=== PATIENT | male | born 1965 | race Caucasian/White ===

== ENCOUNTER → 2019-05-01 | Outpatient (CLI) | payer OTHER ==
[~2019-05-01] MED LIST: ACYCLOVIR 400400 MG PO; ATIVAN1 MG PO; OMEGA 3-6-9 CO1 EACH PO; VALIUM5 MG PO
== END ==
LOC: M.MRI 07:02
DX: M47.22 Other spondylosis with radiculopathy, cervical region (principal); S13.140A Subluxation of C3/C4 cervical vertebrae, initial encounter; M48.02 Spinal stenosis, cervical region; M50.11 Cervical disc disorder with radiculopathy, high cervical region; X58.XXXA Exposure to other specified factors, initial encounter; Y93.89 Activity, other specified; Y92.89 Other specified places as the place of occurrence of the external cause; Y99.8 Other external cause status

== ENCOUNTER → 2019-05-13 | Outpatient (CLI) | payer OTHER ==
[~2019-05-13] MED LIST changes: +DIPHENHYDRAMINE25 M3 PO; +GABAPENTIN100 MG PO; +LIPITOR 20 MG T20 M1 PO; +LOVAZA1000 MG PO; +MILK THISTLE175 M4 PO; +OMEPRAZOLE 20 M20 M1 PO; +TIZANIDINE HCL4 M1 PO; +VITAMIN B12-FO1 EAC1 PO; +VITAMIN D325 MC3 PO
== END ==
LOC: M.PC 05:44
DX: M47.22 Other spondylosis with radiculopathy, cervical region (principal); M50.122 Cervical disc disorder at C5-C6 level with radiculopathy; M48.02 Spinal stenosis, cervical region

== ENCOUNTER 2021-01-26 13:07 | Inpatient (IN) | payer OTHER ==
[~2021-01-26] VITALS: Ht 182.9 cm; Wt 73.0 kg
--- NOTE | ~2021-01-26 | CON ---
[address] [address] CONSULTATION Name: ZINA KRAMER Room: [address] IN M.R.#: [id number] Admission: 01/26/21 Attend Phys: John Phipps MD Discharge: Date of : 63 Report #: [id number] THIS REPORT FOR: cc: Ziggy Armenta MD, Dean L. MD Khosla, Parveen K. 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 He was admitted with couple of seizures. He does not remember anything about those seizures. He does not know when he had it and later on during the examination, it looks like this patient has pretty significant memory deficits. He said he used to drink heavily until about a week ago, he felt sick and tried to cut back. He will not specify what heavily means. He said he was with his fiancee and I do not have the number in the computer for the fiancee. Apparently, he had 2 episodes of seizure. He also says he was ataxic recently. How long that was going on is not clear. He came to Emergency Room and looks like they did a head CT as well as a C-spine CT and it showed some volume loss, but was otherwise unremarkable. REVIEW OF SYSTEMS: A 14-point review of systems is positive for what looks like heavy alcoholism. He had a couple of seizures, but further history is difficult to tell. Some of the medication listed is gabapentin, I am not sure why he is on that. He apparently has a history of rib fracture, but I do not know what the etiology is and I hope I can reach some family. I tried out 14-point review of systems, that is all I can get. PAST MEDICAL HISTORY: Positive for heavy alcoholism. FAMILY HISTORY: Unavailable. SOCIAL HISTORY: He drinks alcohol. PHYSICAL EXAMINATION: NEUROLOGIC: The patient's examination indicates he does not know what month it is. His speech is intact. He does not know what hospital he is in. Cranial nerve examination 2-12 was mostly unremarkable. He moves all 4 extremities. His reflexes are diminished. His position sense appeared to be present. CARDIAC: Unremarkable. RESPIRATORY: Unremarkable. VITAL SIGNS: His temperature is 98.6, blood pressure is 111/85, pulse is 96. LABORATORY DATA: His platelet count is 111. His potassium was only 2.9 when he came in. His liver functions are ____. [place] [address] CONSULTATION Name: ZINA KRAMER Room: [address]#: [id number] Admission: 01/26/21 Attend Phys: John Phipps MD Discharge: Date of : 63 Report #: [id number] IMPRESSION: Everything point towards alcohol withdrawal seizure or alcohol-related seizure. This patient probably is going to withdraw and is already withdrawing. I will get an EEG done, and if another seizure occurs, we will consider seizure medications. We will get an MRI done to complete the workup once he is stable, but presently, I do not want to send him to MRI and get the chance of him having a seizure there. I discussed with him about the alcohol and the fact that he had a seizure, so he cannot drive for 6 months because the state law says that the patient should not drive after the seizure for 6 months. He also needs to take all the seizure precautions, where he can hurt himself if he has a seizure. I will also discuss the patient with Dr. Dior. I spent about 50 minutes of time and majority was spent counseling, coordinating, reviewing his imaging studies and his records. Thank you very much for this referral. By: [id number] 1907Lakhwinder Gamez MD /nt
--- NOTE | ~2021-01-26 | EEG ---
[address] [address] EEG STUDY REPORT Name: ZINA KRAMER Room: [address] IN .R.#: [id number] Admission: 01/26/21 Attend Phys: John Phipps MD Discharge: Date of : 63 Report #: [id number] THIS REPORT FOR: cc: Ziggy Armenta MD, Dean L. MD Khosla,Lakhwinder Childs MD ~ DATE OF SERVICE: 01/28/2021 This patient is being evaluated for a seizure. EEG was done by placing the electrode by standard 10-20 system of electrode placement. Both referential and sequential montages were used for recording. Background activity in this patient's EEG goes up to about 9 Hz and 30 microvolt. It is intermixed with theta range slowing on both sides. Photic stimulation is unremarkable. Throughout the record, no active epileptiform activity was noticed. IMPRESSION: This patient's EEG is within normal limits. Thank you very much for this referral. By: [id number] [id number] Gamez MD /nt
[2021-01-26 13:29] LABS: ABSOLUTE LYMPHOCYTES 0.3 thou/uL (0.8-5.3); ABSOLUTE MONOCYTES 0.5 thou/uL (0.0-1.2); ABSOLUTE NEUTROPHILS 4.9 thou/uL (1.6-8.1); BASOPHILS 0.4 %; EOSINOPHILS 0.1 %; HEMATOCRIT 39.4 % (42.0-52.0); HEMOGLOBIN 13.6 gm/dL (14.0-18.0); LYMPHOCYTES 5.7 %; MCH 31.9 pg (26.0-34.0); MCHC 34.4 g/dL (28.0-37.0); MCV 92.7 fL (80.0-100.0); MONOCYTES 8.1 %; MPV 7.6 fl. (7.2-11.1); NUCLEATED RBCS 0 /100WBC; PLATELET COUNT* 111 thou/uL (150-400); POLYS 85.7 %; RBC 4.25 mil/uL (4.50-6.00); RDW-CV 16.3 % (10.5-14.5); WBC 5.8 thou/uL (4.0-11.0)
[2021-01-26 13:46] LABS: ALBUMIN 4.3 g/dL (3.4-5.0); CALCIUM 8.7 mg/dL (8.5-10.1); CREATININE 1.3 mg/dL (0.6-1.3); TOTAL BILIRUBIN 1.9 mg/dL (<0.1-1.0); TOTAL PROTEIN 7.7 g/dL (6.4-8.2)
[2021-01-26 13:47] LABS: POTASSIUM 2.8 mmol/L (3.5-5.1)
[2021-01-26 13:52] LABS: ALCOHOL < 10 mg/dL (<10)
[2021-01-26 13:55] LABS: ACETAMINOPHEN < 2 ug/mL (10-30); SALICYLATE < 2.8 mg/dL (2.8-20.0)
--- NOTE | 2021-01-26 15:00 | EKG ---
[place] [address] ELECTROCARDIOGRAM REPORT Name: ZINA KRAMER Room: [facility]#: [id number] Admission: 01/26/21 Attend Phys: Discharge: Date of : 63 Date of Service: 01/26/21 1332 Report #: [id number] THIS REPORT FOR: //name// [facility] ED Test Date: 2021-01-26 Test Time: 13:32:55 Pat Name: ZINA KRAMER Department: Room: Gender: Alterations Supervisor: [facility] : 1965 Requested By: Houston Everett Order Number: [id number] MD: Estiven Juarez Measurements Intervals [place] Rate: 113 P: 69 [place]: 56 QRS: 86 QRSD: 100 T: 84 QT: 477 QTc: 655 Interpretive Statements Sinus tachycardia Nonspecific repol abnormality, diffuse leads Prolonged QT interval Compared to ECG 10/20/2016 12:30:48 heart rate has increased nonspecific st-t changes have occurred QT has prolonged Electronically Signed On 01-26-2021 14:59:58 CDT by Estiven Juarez [email or web address] <ELECTRONICALLY SIGNED> By: Estiven Juarez MD, FAC 01/26/21 1459 1332 1332 Estiven Juarez MD, [facility] /EPI
[2021-01-26 15:44] LABS: URINE BLOOD 1+ (Negative); URINE CLARITY CLEAR; URINE COLOR DARK YELLOW; URINE GLUCOSE-RANDOM NEGATIVE (Negative); URINE KETONES TRACE (Negative); URINE LEUKOCYTES-REFLEX NEGATIVE (Negative); URINE NITRITE-REFLEX NEGATIVE (Negative); URINE PROTEIN 3+ (Negative); URINE SPECIFIC GRAVITY 1.025 (1.005-1.030)
[2021-01-26 15:46] LABS: URINE BILIRUBIN 1+ (Negative)
[2021-01-26 15:47] VITALS: BP 111/85
[2021-01-26 15:48] LABS: ICTOTEST (BILI CONFIRMATORY) Negative (Negative)
[2021-01-26 15:52] LABS: AMP/METHAMP Negative (Negative); BARBITURATES Negative (Negative); BENZODIAZEPINES Negative (Negative); COCAINE Negative (Negative); METHADONE Negative (Negative); OPIATES Negative (Negative); PCP Negative (Negative); THC Negative (Negative)
[2021-01-26 15:52] LABS: CALCIUM 8.5 mg/dL (8.5-10.1)
[2021-01-26 15:55] LABS: PHOSPHORUS* 1.2 mg/dL (2.5-4.9)
[2021-01-26 15:55] LABS: BACTERIA-REFLEX 1-9 Few /HPF (None Seen); CASTS None Seen /LPF (None Seen); MUCUS 4-6 Moderate strn/LPF (None Seen); SQUAMOUS 0-3 Few /LPF (0-3); URINE RBC 3-10 Few /HPF (0-2); URINE WBC-REFLEX 0-5 Rare /HPF (0-5)
[2021-01-26 15:56] LABS: CRYSTALS None Seen /LPF (None Seen)
[2021-01-26 16:01] LABS: POTASSIUM 2.9 mmol/L (3.5-5.1)
[2021-01-26 16:45] VITALS: BP 149/89
[2021-01-26 17:08] VITALS: BP 134/88
[2021-01-26 20:00] VITALS: BP 120/78
[2021-01-27] VITALS: BP 114/71
[2021-01-27 04:00] VITALS: BP 144/76
--- NOTE | 2021-01-27 04:53 | NUR ---
ASSUMED PT CARE AT APPROX 1930. PT IS AWAKE, ORIENTED TO SELF, CONFUSED MOST OF THE TIME AND IMPULSIVE. PT IS TRACING ST ON THE MONITOR. ALCOHOL WITHDRAWAL ASSESSMENT DONE AND CHARTED, ATIVAN GIVEN NEEDED. PT C/O LEFT SHOULDER PAIN WITH MOVEMENT, DR ALVARENGA AWARE-XRAY DONE AND RESULTS RELAYED TO DR ALVARENGA. COMMINUTED FX NOTED ON LEFT CLAVICLE- SLING PROVIDED AND ORTHO COUNSULT PLACED. PT IS CLOSELY MONITORED. HIGH FALL PRECAUTIONS IN PLACE.
[2021-01-27 05:31] LABS: ABSOLUTE LYMPHOCYTES 0.6 thou/uL (0.8-5.3); ABSOLUTE MONOCYTES 0.4 thou/uL (0.0-1.2); BASOPHILS 0.4 %; EOSINOPHILS 0.1 %; HEMATOCRIT 34.8 % (42.0-52.0); HEMOGLOBIN 11.8 gm/dL (14.0-18.0); MCH 31.8 pg (26.0-34.0); MCHC 33.9 g/dL (28.0-37.0); MCV 93.7 fL (80.0-100.0); MONOCYTES 9.6 %; MPV 8.4 fl. (7.2-11.1); NUCLEATED RBCS 0 /100WBC; PLATELET COUNT* 83 thou/uL (150-400); POLYS 74.9 %; RBC 3.71 mil/uL (4.50-6.00)
[2021-01-27 05:38] LABS: CALCIUM 7.8 mg/dL (8.5-10.1); CREATININE 0.8 mg/dL (0.6-1.3)
[2021-01-27 06:01] LABS: POTASSIUM 2.9 mmol/L (3.5-5.1)
[2021-01-27 10:30] VITALS: BP 123/78
--- NOTE | 2021-01-27 11:22 | NUR ---
The patient is alert. Call light within reach. SR on the monitor.
[2021-01-27 12:00] VITALS: BP 149/91
--- NOTE | 2021-01-27 14:28 | NUR ---
CM ASSESSMENT: PT ALERT BUT FORGETFUL. CM SPOKE TO PT'S SISTER WHO CONFIRMS THAT AT BASELINE PT IS NORMALLY INDEPENDENT ACTIVE AND WORKS. PT USES 0 DME. PT HAS 0 HX OF HH. PT MAY BENEFIT FROM CONSULT WITH [facility]. CM WILL REMAIN AVAILABLE TO ASSIST AND FOLLOW WITH CM D/C PLANNING NEEDED.
[2021-01-27 16:19] VITALS: BP 112/72
[2021-01-27 20:00] VITALS: BP 114/58
[2021-01-28] VITALS: BP 136/85
[2021-01-28 04:28] LABS: ABSOLUTE LYMPHOCYTES 0.9 thou/uL (0.8-5.3); ABSOLUTE MONOCYTES 0.4 thou/uL (0.0-1.2); ABSOLUTE NEUTROPHILS 2.8 thou/uL (1.6-8.1); BASOPHILS 0.7 %; EOSINOPHILS 0.6 %; HEMATOCRIT 34.4 % (42.0-52.0); HEMOGLOBIN 11.7 gm/dL (14.0-18.0); LYMPHOCYTES 21.7 %; MCH 32.2 pg (26.0-34.0); MCHC 34.2 g/dL (28.0-37.0); MCV 94.4 fL (80.0-100.0); MONOCYTES 9.6 %; MPV 8.1 fl. (7.2-11.1); NUCLEATED RBCS 0 /100WBC; PLATELET COUNT* 86 thou/uL (150-400); POLYS 67.4 %; RBC 3.64 mil/uL (4.50-6.00); RDW-CV 16.2 % (10.5-14.5); WBC 4.1 thou/uL (4.0-11.0)
[2021-01-28 04:30] VITALS: BP 142/89
[2021-01-28 04:53] LABS: ANION GAP < 0 mmol/L (7-16); BUN 5 mg/dL (7-18); CALCIUM 7.7 mg/dL (8.5-10.1); CHLORIDE 100 mmol/L (98-107); CO2 26 mmol/L (21-32); CREATININE 0.7 mg/dL (0.6-1.3); GLUCOSE 114 mg/dL (70-99); POTASSIUM 3.1 mmol/L (3.5-5.1)
[2021-01-28 04:54] LABS: SODIUM 125 mmol/L (136-145)
[2021-01-28 04:58] LABS: ALBUMIN 3.1 g/dL (3.4-5.0); ALKALINE PHOSPHATASE 94 U/L (46-116); MAGNESIUM 1.7 mg/dL (1.8-2.4); SGOT 120 U/L (15-37); SGPT 62 U/L (30-65); TOTAL BILIRUBIN 1.1 mg/dL (<0.1-1.0); TOTAL PROTEIN 6.1 g/dL (6.4-8.2)
[2021-01-28 05:10] LABS: PHOSPHORUS* 1.5 mg/dL (2.5-4.9)
--- NOTE | 2021-01-28 05:44 | NUR ---
ASSUMED PT CARE AT APPROX 1930. PT IS AWAKE AND ORIENTED X4, FORGETFUL AT TIMES. PT IS NOT IN DISTRESS, STATED HE FEELS BETTER. PT IS TRACING S/ST ON THE LABOR CONTRACTOR. PT STATED LEFT ARM STILL ACHES, BUT DENIES THE NEED FOR PAIN MEDICINE. LEFT ARM SLING KEPT IN PLACE. CALL LIGHT WITHIN REACH. HOURLY ROUNDING DONE FOR PT SAFETY. HIGH FALL PRECAUTIONS IN PLACE.
[2021-01-28 12:15] VITALS: BP 116/81
--- NOTE | 2021-01-28 12:48 | NUR ---
PLAN OF CARE: PHYSICIAN INFORMS THAT THE PT MAY BE READY TO D/C WITHIN 24-48 HRS. PT REMAINS TELE STATUS. CM D/C PLANNING NEED TBD AT THIS TIME. HOWEVER PT MAY BENEFIT FROM [facility] CONSULT VISIT WHEN MEDICALL STABLE TO ASSIST WITH D/C PLANNING NEEDS.
--- NOTE | 2021-01-28 14:40 | NUR ---
Nutrition: Pt admitted with ETOH W/D, seizure, fall, clavicle FX. Consult received for poor intake. H/o ETOHism. Labs: Na 125, K+ 3.1, alb 3.1, BG 114. Meds: , thiamine. Regular diet. Pt ate 100% of meals yday. Poor nutrition-quality of life R/T lifestyle AEB ETOHism. Continue MVI, continue good meal intake. Consider mild nutrition risk at this time.
[2021-01-28 15:21] LABS: CALCIUM 8.3 mg/dL (8.5-10.1); CREATININE 0.8 mg/dL (0.6-1.3); MAGNESIUM 1.5 mg/dL (1.8-2.4); POTASSIUM 3.9 mmol/L (3.5-5.1)
[2021-01-28 16:34] VITALS: BP 130/91
[2021-01-28 20:00] VITALS: BP 133/87
[2021-01-28 23:47] VITALS: BP 144/83
[2021-01-29 03:29] VITALS: BP 135/81
--- NOTE | 2021-01-29 06:36 | NUR ---
ASSUMED PT CARE AT APPROX 1930. PT IS AWAKE AND ORIENTED X4, PT IS FORGETFUL AND CONFUSED AT TIMES. PT IS EASILY REDIRECTABLE. PT IS NOT IN DISTRESS, NO DESATURATIONS NOTED ON ROOM AIR. NO ACUTE CHANGES THIS SHIFT. CALL LIGHT WITHIN REACH. HIGH FALL PRECAUTIONS IN PLACE. HOURLY ROUNDING DONE FOR PT SAFETY.
[2021-01-29 07:52] LABS: ABSOLUTE LYMPHOCYTES 0.4 thou/uL (0.8-5.3); ABSOLUTE MONOCYTES 0.5 thou/uL (0.0-1.2); ABSOLUTE NEUTROPHILS 2.8 thou/uL (1.6-8.1); BASOPHILS 0.6 %; EOSINOPHILS 0.3 %; HEMATOCRIT 39.3 % (42.0-52.0); HEMOGLOBIN 13.3 gm/dL (14.0-18.0); LYMPHOCYTES 10.9 %; MCHC 33.7 g/dL (28.0-37.0); MCV 94.7 fL (80.0-100.0); MONOCYTES 13.4 %; MPV 7.7 fl. (7.2-11.1); NUCLEATED RBCS 0 /100WBC; PLATELET COUNT* 153 thou/uL (150-400); POLYS 74.8 %; RBC 4.15 mil/uL (4.50-6.00); RDW-CV 15.6 % (10.5-14.5); WBC 3.8 thou/uL (4.0-11.0)
[2021-01-29 08:03] LABS: ALBUMIN 3.5 g/dL (3.4-5.0); CALCIUM 8.9 mg/dL (8.5-10.1); CREATININE 0.8 mg/dL (0.6-1.3); POTASSIUM 4.5 mmol/L (3.5-5.1); TOTAL BILIRUBIN 1.5 mg/dL (<0.1-1.0); TOTAL PROTEIN 7.4 g/dL (6.4-8.2)
[2021-01-29 10:01] VITALS: BP 135/81
--- NOTE | 2021-01-29 10:06 | NUR ---
THE PATIENT IS ALERT. SR ON THE MONITOR. ABLE TO MAKE NEEDS KNOWN. CALL LIGHT WITHIN REACH. SEIZURE PRECAUTION IN PLACE. THE PATIENT IS ST WHEN UP WITH ACTIVITY.
--- NOTE | 2021-01-29 10:50 | NUR ---
The patient was given discharge insructions. No questions voiced. IV and monitor removed. The patient called a ride is waiting in his room.
--- NOTE | 2021-01-29 12:50 | NUR ---
PHYSICIAN INFORMS OF PLAN TO D/C PT HOME TODAY WITH SELF-CARE. NO CM D/C PLANNING NEEDS ANTICIPATED. CM WILL REMAIN AVAILABLE TO ASSIST AND FOLLOW NEEDED.
== END 2021-01-29 11:05 | disposition home or self-care (01) | DRG 896 ==
LOC: M.ERS 13:07 → M.2W 14:25 → M.TBA-ER 14:25 → M.2W 16:00
PROVIDERS: Family Medicine; ADMIT Internal Medicine; ATTEND Internal Medicine
DX: F10.239 Alcohol dependence with withdrawal, unspecified (principal); G92.9 Unspecified toxic encephalopathy; E87.6 Hypokalemia; R74.01 Elevation of levels of liver transaminase levels; S42.032A Displaced fracture of lateral end of left clavicle, initial encounter for closed fracture; Z79.899 Other long term (current) drug therapy; Z20.822 Contact with and (suspected) exposure to COVID-19; Z81.1 Family history of alcohol abuse and dependence; X58.XXXA Exposure to other specified factors, initial encounter; Y93.89 Activity, other specified; Y92.89 Other specified places as the place of occurrence of the external cause; Y99.8 Other external cause status

== ENCOUNTER → 2021-02-19 | Outpatient (CLI) | payer OTHER | LOC: M.RAD 14:13 | PROVIDERS: ATTEND Internal Medicine | DX: M25.531 Pain in right wrist (principal) ==

== ENCOUNTER 2021-05-29 16:44 | Inpatient (IN) | payer OTHER ==
[~2021-05-29] VITALS: Ht 182.9 cm; Wt 77.1 kg
[2021-05-29 16:47] VITALS: BP 149/86
[2021-05-29 17:20] LABS: HEMOGLOBIN 13.5 gm/dL (14.0-18.0); MCH 31.3 pg (26.0-34.0); MCHC 33.8 g/dL (28.0-37.0); MCV 92.6 fL (80.0-100.0); MPV 7.2 fl. (7.2-11.1); RBC 4.32 mil/uL (4.50-6.00); RDW-CV 17.5 % (10.5-14.5); WBC 4.4 thou/uL (4.0-11.0)
[2021-05-29 17:34] LABS: CALCIUM 8.4 mg/dL (8.5-10.1); CREATININE 1.1 mg/dL (0.6-1.3); POTASSIUM 3.7 mmol/L (3.5-5.1)
[2021-05-29 17:44] LABS: ALBUMIN 4.1 g/dL (3.4-5.0); TOTAL BILIRUBIN 2.3 mg/dL (<0.1-1.0); TOTAL PROTEIN 7.6 g/dL (6.4-8.2)
[2021-05-29 20:34] LABS: PO2 VENOUS 40.8 mmHg (35.0-45.0)
[2021-05-29 20:53] LABS: AMP/METHAMP Negative (Negative); BARBITURATES Negative (Negative); BENZODIAZEPINES Negative (Negative); COCAINE Negative (Negative); METHADONE Negative (Negative); OPIATES Negative (Negative); PCP Negative (Negative); THC Negative (Negative)
[2021-05-29 21:00] LABS: URINE BLOOD 2+ (Negative); URINE CLARITY CLEAR; URINE COLOR DARK YELLOW; URINE GLUCOSE-RANDOM NEGATIVE (Negative); URINE KETONES 2+ (Negative); URINE LEUKOCYTES-REFLEX NEGATIVE (Negative); URINE NITRITE-REFLEX NEGATIVE (Negative); URINE PROTEIN 2+ (Negative); URINE SPECIFIC GRAVITY >= 1.030 (1.005-1.030)
[2021-05-29 21:00] LABS: APTT 26.1 Seconds (25.0-31.3); INR 1.1; PROTIME 11.4 Seconds (9.20-11.50)
[2021-05-29 21:08] LABS: URINE BILIRUBIN 1+ (Negative)
[2021-05-29 21:09] LABS: ICTOTEST (BILI CONFIRMATORY) Negative (Negative); SQUAMOUS 4-10 Moderate /LPF (0-3)
[2021-05-29 21:10] LABS: BACTERIA-REFLEX 1-9 Few /HPF (None Seen); CRYSTALS None Seen /LPF (None Seen); HYALINE CASTS 0-3 Few /LPF (None Seen); MUCUS 4-6 Moderate strn/LPF (None Seen); URINE RBC 3-10 Few /HPF (0-2); URINE WBC-REFLEX 0-5 Rare /HPF (0-5)
[2021-05-29 21:36] VITALS: BP 127/76
[2021-05-29 21:44] LABS: MAGNESIUM 1.4 mg/dL (1.8-2.4); PHOSPHORUS* 3.6 mg/dL (2.5-4.9)
[2021-05-30 01:36] VITALS: BP 144/91
[2021-05-30 05:36] VITALS: BP 128/88
[2021-05-30 09:28] VITALS: BP 127/84
[2021-05-30 10:37] VITALS: BP 127/84
[2021-05-30 11:30] VITALS: BP 127/76
[2021-05-30 11:34] VITALS: BP 127/84
== END 2021-05-30 11:36 | disposition home or self-care (01) | DRG 433 ==
LOC: M.ERS 16:44 → M.TBA-ER 21:33
PROVIDERS: Personal Emergency Response Attendant; ADMIT Internal Medicine; ATTEND Internal Medicine
DX: K70.11 Alcoholic hepatitis with ascites (principal); K56.7 Ileus, unspecified; E87.2 Acidosis; F10.239 Alcohol dependence with withdrawal, unspecified; Z20.822 Contact with and (suspected) exposure to COVID-19; E86.0 Dehydration; F10.229 Alcohol dependence with intoxication, unspecified; Y90.0 Blood alcohol level of less than 20 mg/100 ml; Z79.899 Other long term (current) drug therapy; Z91.19 Patient's noncompliance with other medical treatment and regimen